=== PATIENT | male | born 1925 | race Caucasian/White ===

== ENCOUNTER 2017-07-21 02:35 | Inpatient (IN) | payer MEDICARE ==
[~2017-07-21] VITALS: Ht 172.7 cm; Wt 68.7 kg
--- NOTE | 2017-07-21 02:52 | NUR ---
BRA FROM HOME C/O SYNCOPAL EPISODE UNWITNESSED. PT WITH LAC TO HEAD. NO SOB AT THIS TIME. PAIN ON RIGHT SIDE NECK 6/10 NONRADIATING.A/OX4 VSS NAD WILL CONTINUE TO MONITOR FOR ANY CHANGES.
[2017-07-21] MEDS ORDERED: IV NS 0.9% 500 ML BAG IV ONE (03:00)
[2017-07-21] MEDS ORDERED: CEFAZOLIN 1 GM ONE (03:20)
[2017-07-21] MEDS ORDERED: TDAP [DIPH/PERTUSSIS/TET] 0.5 ML VIAL IM ONE ×2 (03:20→03:30)
[2017-07-21] MEDS ORDERED: CEFAZOLIN 1 GM in IV D5W 50 ML IV ONE (03:30)
--- NOTE | 2017-07-21 03:32 | NUR ---
LAB AT BEDSIDE FOR BLOOD DRAW
[2017-07-21 03:43] LABS: HEMATOCRIT 43 % (39-51); HEMOGLOBIN 14.7 g/dL (13.5-17.5); LYMPHOCYTES # (AUTO) 0.2 /CMM (0.8-4.8); LYMPHOCYTES % (AUTO) 2.9 % (20.0-44.0); MEAN CORPUSCULAR HEMOGLOBIN 33 PG (26.0-33.0); MEAN CORPUSCULAR HGB CONC 34 g/dl (31.0-36.0); MEAN CORPUSCULAR VOLUME 95 fL (80-96); MONOCYTES # (AUTO) 0.2 /CMM (0.1-1.30); MONOCYTES % (AUTO) 1.9 % (2.0-12.0); NEUTROPHILS # (AUTO) 8.2 /CMM (1.8-8.9); NEUTROPHILS % (AUTO) 95.2 % (43.0-81.0); PLATELET COUNT (AUTO) 163 /CMM (150-450); RDW COEFFICIENT OF VARIATION 13.3 (11.5-15.0); RED BLOOD CELL COUNT(AUTO) 4.48 MIL/uL (4.5-6.0); WHITE BLOOD COUNT (AUTO) 8.6 K/uL (4.3-11.0)
--- NOTE | 2017-07-21 03:55 | NUR ---
PT LEFT TO CT
[2017-07-21 03:58] LABS: CALCIUM, SERUM 8.9 mg/dL (8.5-10.1); CARBON DIOXIDE 31 mmol/L (21-32); CHLORIDE 104 mmol/L (98-107); CREATININE 1.1 mg/dL (0.6-1.3); GLUCOSE 134 mg/dL (74-106); POTASSIUM 3.8 mmol/L (3.5-5.1); SODIUM SERUM 143 mmol/L (136-145); UREA NITROGEN, BLOOD 20 mg/dL (7-18)
[2017-07-21 04:01] LABS: INR 1.02 (0.87-1.13)
[2017-07-21 04:03] LABS: ALANINE AMINOTRANSFERASE 25 U/L (12-78); ALBUMIN 3.3 g/dL (3.4-5.0); ALKALINE PHOSPHATASE 88 U/L (46-116); ASPARTATE AMINOTRANSFERASE 21 U/L (15-37); BILIRUBIN,DIRECT 0.3 mg/dL (0.0-0.2); BILIRUBIN,TOTAL 1.1 mg/dL (0.2-1.0); TOTAL PROTEIN, SERUM 6.8 g/dL (6.4-8.2)
[2017-07-21 04:04] LABS: TROPONIN I 0.021 ng/mL (0.00-0.056)
--- NOTE | 2017-07-21 04:06 | NUR ---
REPORT GIVEN TO TACO IGLESIAS ON [address]
[2017-07-21 04:45] VITALS: BP 124/63
--- NOTE | 2017-07-21 04:45 | NUR ---
TELE/RN NOTES RECEIVED PT. FROM ER VIA [facility]. PT. IS AWAKE, ALERT AND ORIENTED X4. BREATHING EVEN AND UNLABORED ON ROOM AIR. NO SOB, RESPIRATORY DISTRESS OR COMPLAINTS OF PAIN NOTED AT THIS TIME. NO COMPLAINTS OF HEADACHE, LIGHTHEADEDNESS OR DIZZINESS AT THIS TIME. ORIENTED PT. TO ROOM. PLACED EXTERNAL MORTGAGE LOAN INTERVIEWER ON PT. PT. WITH LEFT AC 20 GAUGE IV SALINE LOCK PRESENT, PATENT AND INTACT. EDUCATED PT. ON CALLING FOR ASSISTANCE BEFORE AMBULATING. PT. VERBALIZED UNDERSTANDING. BED LOCKED AND IN LOWEST POSITION, SIDE RAILS UP X3, BED ALARM ON, CALL LIGHT WITHIN REACH. AWAITING ADMITTING ORDERS. WILL CONTINUE TO MONITOR.
[2017-07-21] MEDS ORDERED: AZITHROMYCIN 250 MG TABLET PO SCH (06:00)
[2017-07-21] MEDS ORDERED: CEFTRIAXONE 1 G in IV D5W 50 ML IV SCH (06:00)
[2017-07-21] MEDS ORDERED: HYDROCODONE/APAP 5/325MG 1 EACH TABLET PO PRN (06:30)
[2017-07-21] MEDS ORDERED: ALBUTEROL HALF STRENGTH 1.25 MG/3 ML VIAL.NEB NEB PRN (06:30)
[2017-07-21] MEDS ORDERED: ACETAMINOPHEN 325 MG TABLET PO PRN (06:30)
[2017-07-21] MEDS ORDERED: ATOR20TA PO (06:33)
--- NOTE | 2017-07-21 06:41 | NUR ---
TELE/RN NOTES PT. IS LYING IN BED. AWAKE, ALERT AND ORIENTED X4. BREATHING EVEN AND UNLABORED ON ROOM AIR. NO SOB, RESPIRATORY DISTRESS OR COMPLAINTS OF PAIN NOTED AT THIS TIME. NO COMPLAINTS OF HEADACHE, LIGHTHEADEDNESS OR DIZZINESS AT THIS TIME. ORIENTED PT. TO ROOM. PT. WITH EXTERNAL SALES REPRESENTATIVE FACILITY SERVICES PRESENT AND INTACT. CURRENT RHYTHM = SINUS RHYTHM HR 62. PT. WITH LEFT AC 20 GAUGE IV SALINE LOCK PRESENT, PATENT AND INTACT. ALL PT. NEEDS MET. BED LOCKED AND IN LOWEST POSITION, SIDE RAILS UP X3, BED ALARM ON, CALL LIGHT WITHIN REACH. AWAITING ADMITTING ORDERS. WILL ENDORSE TO DAYSHIFT NURSE FOR CONTINUITY OF CARE.
--- NOTE | 2017-07-21 07:00 | NUR ---
HR PAYROLL COORDINATOR NOTES Patient in bed alert/oriented x4. No acute distress noted. Breathing unlabored. No SOB noted. IV access patent and intact, No redness or swelling on IV site. HOB elevated. Safety measures in place. Call light within reach. Will continue to monitor accordingly.
[2017-07-21] MEDS ORDERED: IV NS 0.9% 1,000 ML IV PRN (07:06)
[2017-07-21] MEDS ORDERED: MAG HYDROX/AL HYDROX/SIMETH 30 ML UDC PO PRN (07:30)
[2017-07-21] MEDS: IV NS 0.9% 1,000 ML IV SCH ×2 (07:53→14:53)
[2017-07-21] MEDS: PANTOPRAZOLE 40 MG TABLET.DR PO SCH (07:58)
[2017-07-21 08:00] VITALS: BP 134/70
[2017-07-21] MEDS: DOCUSATE SODIUM 100 MG CAPSULE PO SCH ×2 (09:13→16:52)
[2017-07-21 10:10] LABS: TROPONIN I 0.021 ng/mL (0.00-0.056)
[2017-07-21 10:40] LABS: THYROID STIMULATING HORMONE 1.072 uIU/mL (0.358-3.74)
[2017-07-21] MEDS: ONDANSETRON HCL/PF 4 MG/2 ML VIAL IVP PRN ×2 (12:44→18:38)
--- NOTE | 2017-07-21 12:45 | NUR ---
FIRE EXTINGUISHER TECHNICIAN NOTES PATIENT VERBALIZED THAT AFTER DRINKING WATER HE HAD PAIN IN THE CHEST AND HE FEELS NAUSEATED AND VOMITED FLUID LIKE IN MINIMAL AMOUNT,HE IS POINTING AT THE EPIGASTRIC AREA. ASKED PATIENT IS HE FEELING TIGHTNESS AND HEAVINESS IN THE CHEST, DENIES AND DESCRIBED THE PAIN " I FELL LIKE ACID GOING UP FROM HERE, WHILE PATIENT POINTING AT EPIGASTRIC AREA, AND I VOMITED AND I FEEL BETTER AFTER THAT." MD NOTIFIED.
--- NOTE | 2017-07-21 14:45 | NUR ---
SWITCHBOARD OPERATOR ASSISTANT NOTES SEEN AND EVALUATED BY DR ROMERO WITH NEW ORDERS MADE. NOTED AND CARRIED OUT.
[2017-07-21 16:00] VITALS: BP 151/75
[2017-07-21] MEDS ORDERED: NA PHOS,M-B/NA PHOS,DI-BA 1 EA ENEMA RC ONE (16:00)
--- NOTE | 2017-07-21 18:30 | NUR ---
DAIRY SCIENTIST NOTES Patient in bed alert, oriented, verbally responsive. Denied any pain at this time. No acute distress noted. Breathing unlabored. IV access patent and intact, no redness or swelling on IV site.HOB elevated. Safety measures in place. Due medication given, no ASE noted. Call light within reach. Will continue to monitor accordingly.Will endorse to incoming shift for continuity of care.
--- NOTE | 2017-07-21 19:25 | NUR ---
STAFF DESIGN ENGINEER OPENING NOTES Patient received in bed alert/oriented x 4. No acute distress noted. Resp even & unlabored. No SOB noted. IV access to LAC patent and intact, No redness or swelling on IV site. feels nausea @ times with spitting slight amount of sputum, zofran was given recently. no vomiting noted. will be NPO after midnight for scheduled EGD. HOB elevated. Safety measures in place. Bed in low locked position. Call light within reach. Will continue to monitor accordingly.
[2017-07-21 20:00] VITALS: BP 138/61
[2017-07-21] MEDS: ATORVASTATIN 10 MG TABLET PO SCH (22:00)
--- NOTE | 2017-07-21 22:23 | NUR ---
PT REFUSED LIPITOR PT REFUSED TO TAKE LIPITOR, STATED THAT IF HE WOULD TAKE IT, IT WILL CAUSE HIM NAUSEA. PT HAS C/O NAUSEA WHEN EATS OR DRINK BUT NO VOMITING NOTED SO FAR, PRN ZOFRAN WAS GIVEN ORDERED EARLIER. MD ARMSTRONG.
[2017-07-22] VITALS: BP 127/66
[2017-07-22 04:00] VITALS: BP 119/60
--- NOTE | 2017-07-22 06:05 | NUR ---
PAGED MD PATIENT IS NPO, NOT ON ANY IVF. EGD SCHEDULED @ 9633. PAGED MD TO CLARIFY IF PT NEEDS ANY IVF UNTIL THE EGD IS DONE IN NOON TIME. WAITING FOR MD TO CALL BACK.
--- NOTE | 2017-07-22 06:44 | NUR ---
MECHANICAL SPECIALIST CLOSING NOTES Patient slept intermittently in bed @ night, alert/oriented x 4. No acute distress noted. Resp even & unlabored. No SOB noted. IV access to LAC patent and intact, No redness or swelling on IV site. nausea noted to be subsided so far, no vomiting noted. NPO after midnight for scheduled EGD. paged md & waiting for md to call back to clarify if IVF are needed. will endorse to am rn to verify with md. consent signed. HOB elevated. Safety measures in place. Bed in low locked position. Call light within reach. Will endorse to am rn for continuity of care.
--- NOTE | 2017-07-22 07:27 | NUR ---
CHAIRMAN AND CEO NOTES ENDORSED TO AM RN TO VERIFY WITH MD IF IVF NEEDS TO BE STARTED SINCE PT IS NPO & SCHEDULED FOR EGD @ 8530.
[2017-07-22] MEDS: PANTOPRAZOLE 40 MG TABLET.DR PO SCH (07:30)
[2017-07-22 07:46] LABS: BASOPHILS % (AUTO) 0.2 % (0.0-2.0); EOSINOPHILS % (AUTO) 0.3 % (0.0-6.0); HEMATOCRIT 34 % (39-51); HEMOGLOBIN 11.9 g/dL (13.5-17.5); LYMPHOCYTES # (AUTO) 0.9 /CMM (0.8-4.8); LYMPHOCYTES % (AUTO) 8.2 % (20.0-44.0); MEAN CORPUSCULAR HEMOGLOBIN 33 PG (26.0-33.0); MEAN CORPUSCULAR HGB CONC 35 g/dl (31.0-36.0); MEAN CORPUSCULAR VOLUME 95 fL (80-96); MONOCYTES # (AUTO) 0.4 /CMM (0.1-1.30); MONOCYTES % (AUTO) 3.2 % (2.0-12.0); NEUTROPHILS # (AUTO) 9.8 /CMM (1.8-8.9); NEUTROPHILS % (AUTO) 88.1 % (43.0-81.0); PLATELET COUNT (AUTO) 134 /CMM (150-450); RDW COEFFICIENT OF VARIATION 13.5 (11.5-15.0); RED BLOOD CELL COUNT(AUTO) 3.61 MIL/uL (4.5-6.0); WHITE BLOOD COUNT (AUTO) 11.2 K/uL (4.3-11.0)
--- NOTE | 2017-07-22 07:49 | NUR ---
COLLATERAL CLERK OPENING NOTE RECEIVED SBAR BEDSIDE REPORT ON THE PATIENT. PATIENT IS A/0 X4, AWAKE AND RESPONSIVE IN BED. BED IS LOCKED IN LOWEST POSITION, SIDE RAILS UP X3, BED ALARM IS ON. CALL LIGHT WITHIN REACH. EDUCATED THE PATIENT TO USE THE CALL LIGHT TO CALL FOR ASSISTANCE AND VERBALIZED UNDERSTANDING. ALL NEEDS ARE MET. DENIES PAIN/DISCOMFORT AT THIS TIME. PATIENT IS ON ROOM AIR. CHEST IS RISING EQUALLY/BILATERALLY. EXTERNAL HEART MONITOR READING SB W BBB 58. PATIENT IS SCHEDULED FOR EGD AT NOON TODAY. PATIENT IS NPO. CONSENT IS SIGNED. WILL CONTINUE TO ASSESS/MONITOR THROUGHOUT THE SHIFT.
[2017-07-22 08:00] VITALS: BP 114/60
[2017-07-22 08:28] LABS: ALANINE AMINOTRANSFERASE 19 U/L (12-78); ALBUMIN 2.6 g/dL (3.4-5.0); ALKALINE PHOSPHATASE 60 U/L (46-116); ASPARTATE AMINOTRANSFERASE 20 U/L (15-37); BILIRUBIN,TOTAL 0.6 mg/dL (0.2-1.0); CALCIUM, SERUM 8.4 mg/dL (8.5-10.1); CARBON DIOXIDE 27 mmol/L (21-32); CHLORIDE 111 mmol/L (98-107); GLUCOSE 111 mg/dL (74-106); MAGNESIUM 2.1 mg/dL (1.8-2.4); PHOSPHORUS 2.8 mg/dL (2.5-4.9); POTASSIUM 3.9 mmol/L (3.5-5.1); SODIUM SERUM 146 mmol/L (136-145); TOTAL PROTEIN, SERUM 5.6 g/dL (6.4-8.2); UREA NITROGEN, BLOOD 29 mg/dL (7-18)
[2017-07-22] MEDS ORDERED: IV NS 0.9% 1,000 ML IV PRN (08:42)
[2017-07-22] MEDS ORDERED: ANESTHESIA TRAY IN PYXIS 1 EA TRAY MC ONE (08:54)
--- NOTE | 2017-07-22 08:54 | NUR ---
PATIENT TAKEN TO OR FOR EGD. CONSENT/CHECK LIST VERIFIED WITH [facility] [place].
[2017-07-22] MEDS: DOCUSATE SODIUM 100 MG CAPSULE PO SCH ×2 (09:00→18:00)
--- NOTE | 2017-07-22 10:15 | NUR ---
PATIENT IS BACK FROM EGD. IN BED. ALL NEEDS ARE MET. DENIES PAIN/DISCOMFORT. NEW DIET ORDER RECEIVED. WILL FOLLOW PRECEIVED.
[2017-07-22 10:36] LABS: IRON, SERUM 29 ug/dl (50-175); TOTAL IRON BINDING CAPACITY 167 ug/dl (250-450)
--- NOTE | 2017-07-22 11:15 | NUR ---
PATIENT WAS NPO. UPON COMPLETION OF NPO STATUS PATIENT STATED HE DOES NOT WANT TO TAKE MEDS AT THIS TIME. PATIENT REFUSED. EDUCATION PROVIDED.
[2017-07-22] MEDS: LEVOFLOXACIN 500 MG /D5W 100ML 500 MG in PREMIX 1 EA IV SCH (11:54)
[2017-07-22 12:13] LABS: CHOLESTEROL 102 mg/dL (<200); HDL CHOLESTEROL 67 mg/dL (40-60); LDL 30 mg/dL (0-99); TRIGLYCERIDES 43 mg/dL (30-150)
--- NOTE | 2017-07-22 12:29 | NUR ---
WOUND CARE CONSULT: PT IS CONTINENT AND INDEPENDENT WITH BED MOBILITY. PT PRESENTS WITH CLOSED SCALP LACERATION AND LEFT ELBOW ABRASION, PRESENT ON ADMISSION. DEFER TO MD FOR SCALP. NO DRAINAGE NOTED. RECOMMENDATIONS MADE FOR ELBOW ABRASION AND DISCUSSED WITH NURSING STAFF. CURRENT MATY SCORE IS 18. WILL SEE KISHANN. IN AGREEMENT WITH PLAN OF CARE. Addendum: 07/22/17 at 1231 by KARLIE FONSECA WNDNU Amended: Links added.
[2017-07-22 13:38] LABS: FERRITIN 185 ng/mL (8-388)
[2017-07-22] MEDS: BACITRACIN/POLYMYXIN B 15 GM TUBE TP SCH (14:17)
[2017-07-22 16:02] VITALS: BP 173/69
[2017-07-22] MEDS: SUCRALFATE 1 G TABLET PO SCH (18:21)
--- NOTE | 2017-07-22 19:28 | NUR ---
MS RN CLOSING NOTE GAVE SBAR BEDSIDE REPORT ON THE PATIENT. PATIENT IS A/0 X4, AWAKE AND RESPONSIVE IN BED. BED IS LOCKED IN LOWEST POSITION, SIDE RAILS UP X3, BED ALARM IS ON. CALL LIGHT WITHIN REACH. EDUCATED THE PATIENT TO USE THE CALL LIGHT TO CALL FOR ASSISTANCE AND VERBALIZED UNDERSTANDING. ALL NEEDS ARE MET. DENIES PAIN/DISCOMFORT AT THIS TIME. PATIENT IS ON ROOM AIR. CHEST IS RISING EQUALLY/BILATERALLY. ALL DUE MEDICATIONS ADMINISTERED. PATIENT TOLERATED WELL. AL NEEDES ARE MET. ENDORSED TO THE NEXT SHIFT FOR OLIVIA.
--- NOTE | 2017-07-22 19:35 | NUR ---
MS RN OPENING NOTES Patient received in bed alert/oriented x 4. No acute distress noted. Resp even & unlabored. No SOB noted. stated feeling better than yesterday. IV access to LAC patent and intact, running with IVF. No redness or swelling on IV site. no nausea/vomiting noted so far. HOB elevated per pt preference. Safety measures in place. Bed in low locked position. Call light within reach. Will continue to monitor accordingly.
[2017-07-22 20:00] VITALS: BP 139/74
[2017-07-22 20:06] VITALS: BP 139/74
[2017-07-22] MEDS: ATORVASTATIN 10 MG TABLET PO SCH (21:32)
[2017-07-23] MEDS: SUCRALFATE 1 G TABLET PO SCH ×3 (00:25→12:23)
--- NOTE | 2017-07-23 02:55 | NUR ---
MS RN NOTES PT IS SLEEPING COMFORTABLY, NO N/V NOTED @ NIGHT. NO COUGH, NO C/O PAIN NOTED WELL. V/S WNL. MONITORING CLOSELY.
--- NOTE | 2017-07-23 06:59 | NUR ---
MS RN CLOSING NOTES Patient slept in bed, alert/oriented x 4. No acute distress noted. Resp even & unlabored. No SOB noted. IV access to LAC patent and intact, patient didn't want to be connected to ivf at night, stated that he will drink po fluids as johann but doesn't want the iv to be connected. No redness or swelling on IV site. ambulated in the hallway & felt better. no nausea/vomiting noted so far. HOB elevated per pt preference. Safety measures in place. Bed in low locked position. Call light within reach. Will endorse to am rn for continuity of care.
[2017-07-23 08:00] VITALS: BP 128/63
[2017-07-23 08:08] VITALS: BP 128/63
[2017-07-23] MEDS: BACITRACIN/POLYMYXIN B 15 GM TUBE TP SCH (09:00)
[2017-07-23] MEDS: LEVOFLOXACIN 500 MG /D5W 100ML 500 MG in PREMIX 1 EA IV SCH (10:12)
[2017-07-23] MEDS: DOCUSATE SODIUM 100 MG CAPSULE PO SCH (10:12)
[2017-07-23] MEDS: PANTOPRAZOLE 40 MG TABLET.DR PO SCH (10:12)
[2017-07-23] MEDS ORDERED: SUCR1ORA4 PO (11:27)
[2017-07-23] MEDS ORDERED: PANT40TA2 PO (11:27)
--- NOTE | 2017-07-23 12:11 | NUR ---
SW received a call from pt's RN Adelaide requesting a pair of pants for the pt. SW met with pt. and gave him pair of pants, a t-shirt and boxers per his request. Pt. was very appreciative. No other social service needs are requested at this time. SW is available, if needed.
--- NOTE | 2017-07-23 13:00 | NUR ---
quality controller Notes With discharge order to home. discharge instruction given on home medication and follow up with primary care physician, verbalized understanding. Patient confirmed that [facility] pharmacy already called him about the prescription protonix and carafate. IV access removed and secured site with dressing. Belongings were accounted with patient and claimed no items are missing. He decided to leave his pants. Left hospital in stable condition as milk pickup truck driver by Stormy. assisted to the front lobby. Patient thankful of the care.
[2017-07-24] MEDS ORDERED: LEVOFLOXACIN (500MG) 500 MG TABLET PO SCH (10:00)
== END 2017-07-23 13:00 | disposition home or self-care (01) | DRG 380 ==
LOC: ER 02:38 → TELE 03:56 → MED 07:45 → TELE 07:45 → MED 07-22 22:07
PROVIDERS: ADMIT Internal Medicine; ATTEND Internal Medicine
PROC: 0DD68ZX Extraction of Stomach, Via Natural or Artificial Opening Endoscopic, Diagnostic (ICD-10-PCS; 2017-07-22)
PROC: 0DD58ZX Extraction of Esophagus, Via Natural or Artificial Opening Endoscopic, Diagnostic (ICD-10-PCS; 2017-07-22)
PROC: 0DD98ZX Extraction of Duodenum, Via Natural or Artificial Opening Endoscopic, Diagnostic (ICD-10-PCS; principal; 2017-07-22 12:25)
DX: K22.70 Barrett's esophagus without dysplasia (principal); J15.9 Unspecified bacterial pneumonia; E43 Unspecified severe protein-calorie malnutrition; N17.9 Acute kidney failure, unspecified; I48.91 Unspecified atrial fibrillation; S09.90XA Unspecified injury of head, initial encounter; K29.80 Duodenitis without bleeding; W19.XXXA Unspecified fall, initial encounter; E78.5 Hyperlipidemia, unspecified; Y92.002 Bathroom of unspecified non-institutional (private) residence as the place of occurrence of the external cause; K20.9 Esophagitis, unspecified; K25.9 Gastric ulcer, unspecified as acute or chronic, without hemorrhage or perforation; K31.7 Polyp of stomach and duodenum; Z98.890 Other specified postprocedural states; K29.70 Gastritis, unspecified, without bleeding; I25.10 Atherosclerotic heart disease of native coronary artery without angina pectoris; S16.1XXA Strain of muscle, fascia and tendon at neck level, initial encounter; E80.4 Gilbert syndrome
CPT/HCPCS: 36415; 70450-TC; 71045-TC; 72125-TC; 76705-TC; 80048-TC; 80053-TC; 80061-TC; 80076-TC; 82306; 82728-TC; 83540-TC; 83735-TC; 83880; 84100-TC; 84439-TC; 84443-TC; 84484-TC; 85025-TC; 85730-TC; 87081-TC; 88305-TC; 88313-TC; 88342; 90715; 93307-TC; A4216; A4606; A6402; J0690; J0696; J1956; J2405; J7030; J7040; J7060; L0172; Z7610